=== PATIENT | female | born 1960 | race Caucasian/White ===

== ENCOUNTER 2019-04-22 12:36 | Day surgery (SDC) | payer OTHER, MEDICAID ==
[2019-04-22] MEDS ORDERED: BUPIVACAINE 0.5% (SDV) 30 ML INJ (14:04)
[2019-04-22] MEDS ORDERED: MIDAZOLAM 1 MG/ML 2 ML INJ (14:04)
[2019-04-22] MEDS ORDERED: LIDOCAINE 2% (SDV) 5 ML INJ (14:07)
[2019-04-22] MEDS ORDERED: PROPOFOL 100 ML (14:25)
[2019-04-22] MEDS ORDERED: FENTAnyl 50 MCG/ML VIAL (14:28)
[2019-04-22] MEDS ORDERED: LIDOCAINE 1% (MPF) 30 ML INJ (14:31)
[2019-04-22] MEDS ORDERED: DEXAMETHASONE 4 MG/ML 5 ML INJ (15:11)
[2019-04-22] MEDS ORDERED: ONDANSETRON 4 MG INJ (15:12)
[2019-04-22] MEDS ORDERED: GLYCOPYRROLATE 0.4 MG INJ (16:12)
[2019-04-22] MEDS ORDERED: NEOSTIGMINE 3 MG/3 ML SYRINGE (16:12)
[2019-04-22] MEDS ORDERED: ONDANSETRON 4 MG INJ IV (16:30)
[2019-04-22] MEDS ORDERED: EPHEDrine 25 MG/5 ML SYG IV (16:30)
[2019-04-22] MEDS ORDERED: DIPHENHYDRAMINE 50 MG INJ IV (16:30)
[2019-04-22] MEDS ORDERED: HYDROmorphONE 1 MG/5 ML IV SYRINGE IV ×2 (16:30)
[2019-04-22] MEDS ORDERED: ALBUTEROL 0.083% (NEB) 2.5 MG/3 ML AMP HHN (16:30)
[2019-04-22] MEDS ORDERED: MEPERIDINE 25 MG INJ IV (16:30)
[2019-04-22] MEDS ORDERED: FENTAnyl 50 MCG/ML VIAL IV ×2 (16:30)
[2019-04-22] MEDS ORDERED: LABETALOL HCL 20MG INJ IV (16:30)
[2019-04-22] MEDS ORDERED: hydrALAzine 20 MG INJ IV (16:30)
[2019-04-22] MEDS: HYDROmorphONE 1 MG/5 ML IV SYRINGE IV (17:09)
[2019-04-22] MEDS: FENTAnyl 50 MCG/ML VIAL IV (17:09)
[2019-04-22] MEDS: KETOROLAC 30 MG INJ IV (17:10)
== END 2019-04-22 18:44 | disposition home or self-care (01) ==
LOC: SDS 12:36
DX: S52.571D Other intraarticular fracture of lower end of right radius, subsequent encounter for closed fracture with routine healing (principal); X58.XXXD Exposure to other specified factors, subsequent encounter; G56.01 Carpal tunnel syndrome, right upper limb
CPT/HCPCS: 25609; 73090-RT